=== PATIENT | female | born 1935 | race Caucasian/White ===

== ENCOUNTER 2020-02-20 10:00 | Day surgery (SDC) | payer OTHER ==
[~2020-02-20] VITALS: Ht 162.6 cm; Wt 77.5 kg
[~2020-02-20 10:00] MED LIST: ASPI81CH PO; FISH OIL 1,2001 EAC4 PO; LATA.005SO BOTHEYES; LISINOPRIL-HCT1 EACH PO; LOVA40 PO; Ocuvite Preser1 EACH PO
[2020-02-20] MEDS ORDERED: METF500 PO (10:26)
--- NOTE | 2020-02-20 12:26 | NUR ---
02/20/20 1226 Kenneth Lynch NO INSTRUMENTS TO COUNT.
== END 2020-02-20 13:21 | disposition home or self-care (01) ==
LOC: ORSCSDS 10:00
PROVIDERS: Ophthalmology
PROC: 08RJ3JZ Replacement of Right Lens with Synthetic Substitute, Percutaneous Approach (ICD-10-PCS; principal; 2020-02-20 11:30)
PROC: 08123Z4 Bypass Right Anterior Chamber to Sclera, Percutaneous Approach (ICD-10-PCS; principal; 2020-02-20 11:30)
DX: H25.11 Age-related nuclear cataract, right eye (principal); H40.1110 Primary open-angle glaucoma, right eye, stage unspecified; I10 Essential (primary) hypertension; E11.36 Type 2 diabetes mellitus with diabetic cataract; Z79.82 Long term (current) use of aspirin; Z79.84 Long term (current) use of oral hypoglycemic drugs; Z79.899 Other long term (current) drug therapy
CPT/HCPCS: 82947; J2001; J2250; J3010; J3301; J7040; V2632